=== PATIENT | male | born 1955 | race Caucasian/White ===

== ENCOUNTER 2017-10-24 05:50 | Day surgery (SDC) | payer OTHER ==
[~2017-10-24] VITALS: Ht 175.3 cm; Wt 120.7 kg
[~2017-10-24 05:50] MED LIST: BUPR150ER PO; GABA300 PO; METF500 PO; MORP15ER PO; Norco 10-325 T1 EACH PO; Omeprazole20 M1 PO; PROM25 PO
== END 2017-10-24 23:13 | disposition home or self-care (01) ==
LOC: ORSCMMR 05:50 → ORD 07:30 → ORSCMMR 07:30
PROVIDERS: Surgery
PROC: 0FT44ZZ Resection of Gallbladder, Percutaneous Endoscopic Approach (ICD-10-PCS; principal; 2017-10-24 07:30)
PROC: BF031ZZ Plain Radiography of Gallbladder and Bile Ducts using Low Osmolar Contrast (ICD-10-PCS; principal; 2017-10-24 07:30)
DX: K80.18 Calculus of gallbladder with other cholecystitis without obstruction (principal); E11.9 Type 2 diabetes mellitus without complications; K21.9 Gastro-esophageal reflux disease without esophagitis; E66.01 Morbid (severe) obesity due to excess calories; Z68.39 Body mass index [BMI] 39.0-39.9, adult; Z79.899 Other long term (current) drug therapy
CPT/HCPCS: 82947; 88304; J0690; J1100; J1885; J2250; J2405; J2710; J3010; J7030; J7120

== ENCOUNTER 2023-03-17 08:33 | Emergency (ER) | payer OTHER ==
[~2023-03-17] VITALS: Ht 172.7 cm; Wt 81.7 kg
[2023-03-17 09:01] LABS: BASOPHILS ABSOLUTE AUTO 0.01 K/mm3 (0.00-0.23); BASOPHILS PERCENT AUTO 0 % (0-2); EOSINOPHILS ABSOLUTE AUTO 0.03 K/mm3 (0.00-0.68); EOSINOPHILS PERCENT AUTO 0 % (0-6); Hematocrit 45.2 % (37.0-53.0); Hemoglobin 15.8 g/dL (13.5-17.5); IMMATURE GRAN ABSOLUTE AUTO 0.03 K/mm3 (0.00-0.10); IMMATURE GRAN PERCENT AUTO 0 % (0-1); LYMPHOCYTES ABSOLUTE AUTO 2.04 K/mm3 (0.84-5.20); LYMPHOCYTES PERCENT AUTO 26 % (21-46); MONOCYTES ABSOLUTE AUTO 0.47 K/mm3 (0.16-1.47); MONOCYTES PERCENT AUTO 6 % (4-13); Mean Corpuscular Volume 89 fL (80-100); Mean Platelet Volume 10.2 fL (9.1-12.4); NEUTROPHILS ABSOLUTE AUTO 5.38 K/mm3 (1.96-9.15); NEUTROPHILS PERCENT AUTO 68 % (41-73); Platelet Count 249 K/mm3 (150-400); RDW Coefficient Variation 11.9 % (11.7-14.2); RDW Standard Deviation 38.9 fL (35.1-46.3); Red Blood Cell Count 5.09 M/mm3 (4.30-5.90); White Blood Cell Count 7.96 K/mm3 (4.00-11.30)
[2023-03-17 09:13] LABS: Albumin, Blood 4.4 g/dL (3.4-5.0); Albumin/Globulin Ratio 1.3 (0.8-1.8); Bilirubin, Total 1.1 mg/dL (0.1-1.0); Bun/Creatinine Ratio 19.3 (12.0-20.0); Creatinine, Blood 1.09 mg/dL (0.60-1.20); Globulin, Blood 3.4 g/dL (2.2-4.0); Magnesium, Blood 1.6 mg/dL (1.6-2.4); Potassium, Blood 3.5 mmol/L (3.5-5.5); Total Protein, Blood 7.8 g/dL (6.4-8.2)
[2023-03-17] MEDS ORDERED: ONDA4ODT MM (11:13)
[2023-03-17 11:15] VITALS: BP 142/63
== END 2023-03-17 11:27 | disposition home or self-care (01) ==
LOC: ER 08:33
PROVIDERS: Emergency Medicine
DX: K52.9 Noninfective gastroenteritis and colitis, unspecified (principal); E86.0 Dehydration; E11.9 Type 2 diabetes mellitus without complications; K21.9 Gastro-esophageal reflux disease without esophagitis; Z88.5 Allergy status to narcotic agent; Z88.8 Allergy status to other drugs, medicaments and biological substances; Z79.84 Long term (current) use of oral hypoglycemic drugs; Z79.899 Other long term (current) drug therapy
CPT/HCPCS: 80053; 83690; 83735; 85025; A9270; J1790; J2405; J7030

== ENCOUNTER 2024-02-13 11:46 | Day surgery (SDC) | payer OTHER ==
[~2024-02-13] VITALS: Ht 175.3 cm; Wt 92.1 kg
[~2024-02-13 11:46] MED LIST changes: +B-121000 MC7 PO; +NS 500 ML IV ONE; +OMEP20ER PO; +ONDA4ODT MM; +TRAZODONE PO; +Triamcinolone Inj Susp 40 MG / ML 1ML Vial ONE
[2024-02-13] MEDS ORDERED: Norco 5-325 Ta1 EACH PO (12:06)
[2024-02-13] MEDS ORDERED: NS 500 ML IV ONE (12:26)
[2024-02-13] MEDS ORDERED: Midazolam HCl 1MG / ML 2ML Vial ONE (12:44)
[2024-02-13] MEDS ORDERED: FentaNYL Citrate 50 MCG/ML 2 ML Injection ONE (12:44)
[2024-02-13] MEDS ORDERED: Moxifloxacin HCL 0.5 MG/0.1 ML 0.4MLSYR XX ONE (13:19)
[2024-02-13] MEDS ORDERED: Balanced Salt Epinephrine Irrigation Solution 500 mL IR ONE (13:19)
[2024-02-13] MEDS ORDERED: Lidocaine HCl/Pf 1% 5 ML VIAL XX ONE (13:19)
[2024-02-13 13:34] VITALS: BP 108/68
== END 2024-02-13 13:46 | disposition home or self-care (01) ==
LOC: ORSCSDS 11:46
PROVIDERS: Ophthalmology
PROC: 08RK3JZ Replacement of Left Lens with Synthetic Substitute, Percutaneous Approach (ICD-10-PCS; principal; 2024-02-13 13:00)
DX: H25.812 Combined forms of age-related cataract, left eye (principal); Z96.1 Presence of intraocular lens; K21.9 Gastro-esophageal reflux disease without esophagitis; Z79.899 Other long term (current) drug therapy
CPT/HCPCS: 82947; J2001; J2250; J3010; J3301; J7040; V2632